=== PATIENT | male | born 1955 | race American Indian/Alaskan Native ===

== ENCOUNTER 2024-07-17 09:51 | Emergency (ER) | payer MEDICARE, MEDICAID, SELFPAY ==
[2024-07-17 09:52] VITALS: BMI 26.6
[2024-07-17 11:07] VITALS: BP 126/81; PULSE 63; RESP 20; TEMP 36.8; O2SAT 96; BMI 26.6
--- NOTE | 2024-07-17 11:21 | XR_ITS ---
Examination: CT brain head without contrast. 2-D sagittal coronal reconstructions Date and time of exam:July 17, 2024 1203 hours INDICATIONS: Syncopal episode today, patient fell with injury to the head CTDI: vol (mGy):51.5 DLP: (mGycm):1062 Technique: Multiple CT axial sections of the brain have been obtained, 5 mm slice thickness. Contrast has not been administered. 2-D sagittal, coronal reconstructions have been obtained Low dose protocols were performed. One or more of the following dose reduction techniques were used; automated exposure control, adjustment of the mA and/or KV according to patient size, use of iterative reconstruction technique. Findings: No significant ventricular enlargement. Intra-axial or extra-axial hemorrhage density is not seen. No mass effect or midline shift Basal cisterns are not remarkable. Fourth ventricle is midline. Cranial vault intact. Impression: Negative for acute hemorrhage, mass effect or midline shift
--- NOTE | 2024-07-17 11:21 | EKG_ITS ---
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
--- NOTE | 2024-07-17 11:21 | XR_ITS ---
Examination: AP chest single view Technique one AP upright chest single view Exam date and time: July 17, 2024 1139 hours INDICATIONS: Leg weakness beginning 5 days ago with chest pain FINDINGS: Mild prominence of ventricle No pneumonia or pulmonary edema Moderate osteopenia. Surgical clips soft tissue right neck IMPRESSION: No pneumonia or pulmonary edema
--- NOTE | 2024-07-17 11:22 | PD.EDRME ---
Rapid Medical Screening Exam E Arrival date/time: 07/17/24 09:51 This is a 68-year-old male who presents to the emergency department with complaints of syncope episode 3 days ago. According to the family since then the patient has been experiencing generalized weakness. I have greeted and performed a focused initial assessment of this patient. Initial appropriate labs ordered at this time. A comprehensive ED assessment and evaluation of the patient and analysis of all test and completion of medical decision making process will be conducted by additional ED provider. Chief Complaint: Fall Time Seen by Provider: 07/17/24 10:47 Vital signs: Vital Signs Temperature 98.2 F 07/17/24 11:07 Pulse Rate 63 07/17/24 11:07 Respiratory Rate 20 07/17/24 11:07 Blood Pressure 126/81 07/17/24 11:07 Pulse Oximetry (%) 96 07/17/24 11:07 Oxygen Delivery Method Room Air 07/17/24 11:07
--- NOTE | 2024-07-17 12:02 | PC.NURSE ---
FAMILY CAME AND PICKED UP LEMUEL FROM [facility]
[2024-07-17 12:42] LABS: Basophils # (Auto) 0.1 Thou/mm3 (0.0-0.2); Basophils % (Auto) 1 % (0-2.5); Eosinophils # (Auto) 0.3 Thou/mm3 (0.0-0.5); Eosinophils % (Auto) 4 % (0-10); Hematocrit 30.5 % (41.0-53.0); Hemoglobin 10.3 g/dL (13.5-16.0); Immature Granulocytes % (Auto) 0 % (0-0); Immature Granulocytes Auto 0.01 Thou/mm3 (0.00-0.00); Lymphocytes # (Auto) 1.4 Thou/mm3 (1.0-4.8); Lymphocytes % (Auto) 19 % (10-50); Mean Corpuscular HGB Conc 33.8 g/dl (31.0-37.0); Mean Corpuscular Hemoglobin 30.2 pg (25.0-35.0); Mean Corpuscular Volume 89 fL (80-100); Monocytes # (Auto) 0.4 Thou/mm3 (0.0-0.8); Monocytes % (Auto) 5 % (0-12); Neutrophils # (Auto) 5.2 Thou/mm3 (1.8-7.7); Neutrophils % (Auto) 71 % (37-80); Nucleated Red Blood Cell % 0 /100 WBC (0); Platelet Count 236 Thou/mm3 (140-440); RDW Standard Deviation 52.4 fL (35.1-43.9); Red Blood Count 3.41 Miln/mm3 (4.50-5.90); White Blood Count 7.4 Thou/mm3 (3.8-10.6)
[2024-07-17 12:56] LABS: B-Type Natriuretic Peptide 24 pg/mL (0-100); Prothrombin Time 11.1 Seconds (9.0-12.2)
[2024-07-17 13:00] LABS: Alanine Aminotransferase 52 U/L (10-49); Albumin, Serum 4.8 gm/dL (3.4-4.8); Albumin/Globulin Ratio 1.7 (1.2-2.2); Alkaline Phosphatase 66 U/L (46-116); Anion Gap 8 (7-16); Aspartate Amino Transferase 49 U/L (0-34); BUN/Creatinine Ratio 11 Ratio (12-20); Bilirubin,Total 0.5 mg/dL (0.3-1.2); Blood Urea Nitrogen 18 mg/dL (9-23); Chloride 100 mMol/L (98-107); Creatinine (Component) 1.6 mg/dL (0.6-1.3); Estimated Creatinine Clearance 45.4 mL/min (>60); Globulin 2.8 gm/dL (2.3-3.5); Glucose 101 mg/dL (74-106); Lipase 60 U/L (12-53); Magnesium 2.4 mg/dL (1.6-2.6); Osmolality,Calculated 275 (275-295); Potassium 4.4 mMol/L (3.4-5.1); Sodium 137 mMol/L (136-145); Total Protein 7.6 gm/dL (5.7-8.2); Troponin I < 0.020 ng/mL (0.0-0.045); eGFR 47 See Note
[2024-07-17 15:54] LABS: Troponin I < 0.020 ng/mL (0.0-0.045)
--- NOTE | 2024-07-17 16:40 | EDNOTE_ITS ---
ED Weakness RME/HPI General Chief complaint: Fall Stated complaint: FALL Time Seen by Provider: 07/17/24 10:47 Arrival date/time: 07/17/24 09:51 RME / HPI RME / HPI Narrative: 07/17/24 09:51 This is a 68-year-old male who presents to the emergency department with complaints of syncope episode 3 days ago. According to the family since then the patient has been experiencing generalized weakness. I have greeted and performed a focused initial assessment of this patient. Initial appropriate labs ordered at this time. A comprehensive ED assessment and evaluation of the patient and analysis of all test and completion of medical decision making process will be conducted by additional ED provider. DR. FOOTE MAIN ED EVALUATION 68 year old male with no significant medical history, who presents with a gra dual decline in balance and functionality over the past year. His family has noted a noticeable worsening of his condition, requiring increasing assistance with activities of daily living within the last week. Notably, the patient experienced a fall this morning when he rolled off his bed, approximately 2.5-3 feet above the floor, landing face down. The patient also fell in the restroom on 07/10/2024. Today, the patient reports feeling short of breath and globally weak, though he denies any pain or fevers. There are no other complaints at this time. He has consulted with his PCP at [facility] who ordered labs 03/2024, with a follow up appointment scheduled for 07/29/2024. The patient's family state they have been more involved in supporting the patient with his ADLs due to the recent decline in his functional status. Related Data Allergies Allergy/AdvReac Type Severity Reaction Status Date / Time NKA* Allergy Uncoded 07/17/24 09:55 Review of Systems Review of Systems Narrative Review of Systems: Gen: No fever, no chills EYES: No discharge, no visual changes, no pain HEENT: No ear pain, no congestion, no sore throat PULM: + shortness of breath, no cough, no congestion CV: No chest pain, no palpitations, no chest tightness GI: No nausea, no vomiting, no diarrhea, no pain, no constipation : No frequency, no urgency,? no dysuria Musc/skel: No joint pain, no back pain Skin: No rash, no ecchymosis, no lesions Neuro: +global weakness, no headache Past Medical History Social History SMOKING STATUS: Current every day smoker ED Exam Narrative Physical exam: GENERAL APPEARANCE: AxOx4, no obvious distress, nontoxic appearing HEENT: NC, AT. MMM. EOMI, clear conjunctiva, oropharynx clear. NECK: Supple without lymphadenopathy. No stiffness or restricted ROM. HEART: Normal rate and regular rhythm, normal S1/S1, no m/r/g LUNGS: CTAB, moving air well. No crackles or wheezes are heard. ABDOMEN: Soft, nontender, nondistended with good bowel sounds heard. BACK: No midline C/T/L spine pain or deformity, No CVAT, no obvious deformity. EXTREMITIES: Without cyanosis, clubbing or edema. NEUROLOGICAL: Alert and oriented, moving all 4 extremities. Slurred speech. Generalized weakness, unable to stand by self, required assistance from family, he does spontaneously move all 4 extremities Skin: Warm and dry without any rash. Pale thin fraile skin, multiple self induced excoriations to bilateral upper extremities, mostly in the forearms. Course Quality Measures none Orders Category Date Time Status Combination Machine Tender STAT Care 07/17/24 11:21 Completed Continuous Pulse Oximetry ONCE Care 07/17/24 11:21 Completed EKG (ED ONLY) *Do not use* NOW Care 07/17/24 11:21 Completed Insert IV STAT Care 07/17/24 11:[address] head/brain wo con Stat Exams 07/17/24 11:21 Completed EKG (ED Only) Stat Exams 07/17/24 11:21 Draft XR chest 1V portable Stat Exams 07/17/24 11:21 Completed B-Type Natriuretic Peptide Stat Lab 07/17/24 12:23 Completed CBC Stat Lab 07/17/24 12:23 Completed Comprehensive Metabolic Panel Stat Lab 07/17/24 12:23 Completed Lipase Stat Lab 07/17/24 12:23 Completed Magnesium Stat Lab 07/17/24 12:23 Completed Prothrombin Time with INR Stat Lab 07/17/24 12:23 Completed Troponin I Stat Lab 07/17/24 12:23 Completed Troponin I Stat Lab 07/17/24 15:16 Completed Reevaluation(s) Reevaluation #1: We reviewed all the results, analysis, and treatment plans. Patient is amenable to discharge. Strict return precautions were outlined. Patient was discharged in stable condition. Vital Signs Vital signs: Vital Signs Temperature 98.2 F 07/17/24 11:07 Pulse Rate 63 07/17/24 11:07 Respiratory Rate 20 07/17/24 11:07 Blood Pressure 126/81 07/17/24 11:07 Pulse Oximetry (%) 96 07/17/24 11:07 Oxygen Delivery Method Room Air 07/17/24 11:07 Pulse ox is 96% on room air which is adequate. Weakness MDM Narrative MDM Narrative:: Eileen Bauer am scribing for and in the presence of Dr. Foote. Patient data External records reviewed:: [facility] previous records (No previous visits for review ) Clinical information provided by:: patient and family Social determinants that could affect healthcare access:: substance use (Reports smoking marijuana and cigarettes ) Patient has the following chronic illnesses:: none reported How is presenting disease/condition affected by chronic disease/condition?: no chronic disease Evaluation data The following diagnostics were reviewed and interpreted by me:: lab results, radiology exam(s) and EKG tracing(s) (NSR, HR 63, no acute ischemic changes, no STEMI. ) Lab and/or radiology exams considered but not ordered:: None Interpretation Summary: Ordering Physician: [facility] Date of Service: 07/17/24 Procedure(s): XR chest 1V portable Accession Number(s): [id number] cc: Esdras Magdaleno MD; [facility] Caicedo~ Examination: AP chest single view Technique one AP upright chest single view Exam date and time: July 17, 2024 1139 hours INDICATIONS: Leg weakness beginning 5 days ago with chest pain FINDINGS: Mild prominence of ventricle No pneumonia or pulmonary edema Moderate osteopenia. Surgical clips soft tissue right neck IMPRESSION: No pneumonia or pulmonary edema Dictated By:Esdras Magdaleno MD Signed By:<Electronically signed by Esdras Magdaleno MD in OV>07/17/24 1153 Ordering Physician: [facility] Date of Service: 07/17/24 Procedure(s): CT head/brain wo con Accession Number(s): [id number] cc: Esdras Magdaleno MD; NO PRIMARY/FAMILY,PHYSICIAN; Lisa [facility] Caicedo~ Examination: CT brain head without contrast. 2-D sagittal coronal reconstructions Date and time of exam:July 17, 2024 1203 hours INDICATIONS: Syncopal episode today, patient fell with injury to the head CTDI: vol (mGy):51.5 DLP: (mGycm):1062 Technique: Multiple CT axial sections of the brain have been obtained, 5 mm slice thickness. Contrast has not been administered. 2-D sagittal, coronal reconstructions have been obtained Low dose protocols were performed. One or more of the following dose reduction techniques were used; automated exposure control, adjustment of the mA and/or KV according to patient size, use of iterative reconstruction technique. Findings: No significant ventricular enlargement. Intra-axial or extra-axial hemorrhage density is not seen. No mass effect or midline shift Basal cisterns are not remarkable. Fourth ventricle is midline. Cranial vault intact. Impression: Negative for acute hemorrhage, mass effect or midline shift Dictated By:Esdras Magdaleno MD Signed By:<Electronically signed by Esdras Magdaleno MD in OV>07/17/24 1237 Medications / Prescriptions Medications or Prescriptions considered but not ordered:: None Medication administrations:: None Consultations Consultation(s) initiated? (list below): No Diagnosis Weakness Differential Diagnosis: anemia, hypoglycemia, hypothyroidism, sepsis, dehydration and other (CVA ) Most likely diagnosis given after review of the tests above:: Fall from ground level Admission Indicated Admission indicated?: not indicated Admission Request Was there a request for admission?: No Disposition Plan Disposition Plan: Discharge Discharge Attestation Discharge Attestation: The patient and all family members were given an opportunity to ask questions and understood the discharge instructions. Discharge instructions specifically effects, indications for sooner follow up or return to the emergency department, and the expected course of current diagnosis. Patient condition: Stable Discharge Plan Plan Patient Disposition: HOME (Self Care) Prescriptions/Referrals Referrals: No Primary/Family,Physician [Primary Care Provider] - In 1 week Problem List Clinical Impression: Fall from ground level Patient/Caregiver Discharge Instructions Education Materials: Preventing Falls Making ..., Preventing Falls Moving Safely ..., Preventing Falls How to ..., Preventing Falls Make Your ..., ED Fall with Uncertain Cause, ED Fall Dizziness Weakn Balance Additional Instructions: Follow-up with your primary care doctor as scheduled for the results of your initial workup. You can also consider discussion with them for assistance with improving your strength and balance including physical therapy and review of home safety. Instructions been provided to assist with home safety. You can return to the emergency department sooner symptoms worsen or if he notes any new, concerning issues. Print Language: Mauritanian Stand Alone Forms: Farrah Award Info., Patient Portal Info Letter
== END 2024-07-17 17:40 | disposition home or self-care (01) ==
PROVIDERS: Nurse Practitioner Primary Care; Emergency Provider Emergency Medicine
DX: R55 Syncope and collapse (principal); R53.1 Weakness
CPT/HCPCS: 36415; 70450; 71045; 80053; 83690; 83735; 83880; 84484; 85025; 85610; 93005; 99284

== ENCOUNTER 2024-10-27 10:55 | Outpatient (RCR) | payer MEDICARE, MEDICAID, SELFPAY ==
--- NOTE | 2024-10-27 12:47 | PTNOTE_ITS ---
PT OP Initial Eval Patient Information Outpatient Physical Therapy Treatment Date: 10/27/24 Visit Reasons: history of falling Medical Diagnosis: Z91.81 Treatment Dx #1: Falls Treatment Dx #2: General Weakness Start of Care: 10/27/24 Date of Onset: Jun 2024 Smoking Status Smoking Status: Current every day smoker Cessation Counseling Provided: GIO was advised that quitting smoking is the single most important factor to protect the health of themselves and their family. Discussed the benefits of quitting smoking with patient. Encouraged patient to quit smoking and provided Cessation assistance materials and resources. Tobacco Use: Cigarette Years smoked: 20 Are you interested in quitting?: No Would you like additional Smoking Cessation Counseling?: No Initial Assessment Subjective: Pt is a 69 y/o male reports of falls and more general weakness worsening since Jun 2024. Pt is currently non-ambulatory and require financial planning assistant from family members with all ADLs. 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 At this time Pt is not appropriate for outpatient physical therapy due to severe deconditioning and decrease overall mobility. Recommend homehealth physical therapy/occupational therapy due to homebound status and to work on general strengthening prior to attempting outpatient physical therapy effectively. Pt was evaluated and d/c from care; thank you for your referrals. Short Term and Nursing Home Goals D/C home and follow up with MD Recommend homehealth PT/OT Recommend Hand Splint to prevent finger contractures Procedure Charges OP PT Eval Mod Complex 30 minutes: Yes
== END 2024-11-23 23:59 | disposition home or self-care (01) ==
LOC: CPTX 10:55
PROVIDERS: PCP Internal Medicine; Referring Provider Internal Medicine; Visit Provider Internal Medicine
DX: R53.1 Weakness (principal); Z91.81 History of falling; Z71.6 Tobacco abuse counseling; F17.210 Nicotine dependence, cigarettes, uncomplicated
CPT/HCPCS: 97162